=== PATIENT | female | born 1990 | race African-American/Black ===

== ENCOUNTER 2016-09-28 19:59 | Inpatient (IN) | payer MEDICAID, OTHER ==
[~2016-09-28] VITALS: Ht 157.5 cm; Wt 80.0 kg
[~2016-09-28 19:59] MED LIST: PALI234D IM
[2016-09-28 21:00] LABS: BASOPHILS % (AUTO) 0.2 % (0.0-2.0); EOSINOPHILS % (AUTO) 0.7 % (1.0-6.0); HEMATOCRIT 37.4 % (36-46); HEMOGLOBIN 12.2 g/dL (12.0-16.0); LYMPHOCYTES # (AUTO) 3.2 K/uL (1.0-4.8); LYMPHOCYTES % (AUTO) 30.8 % (22.0-44.0); MEAN CORPUSCULAR HEMOGLOBIN 29.8 pg (26.0-34.0); MEAN CORPUSCULAR HGB CONC 32.7 G/dL (31.0-37.0); MEAN CORPUSCULAR VOLUME 91 fL (80-100); MONOCYTES # (AUTO) 0.6 K/uL (0.1-1.0); MONOCYTES % (AUTO) 6.1 % (2.0-9.0); NEUTROPHILS # (AUTO) 6.5 K/uL (1.8-7.7); NEUTROPHILS % (AUTO) 62.2 % (40.0-70.0); PLATELET COUNT (AUTO) 261 K/uL (150-450); WHITE BLOOD COUNT (AUTO) 10.5 K/uL (4.5-11.0)
[2016-09-28 21:12] LABS: ANION GAP 10 mmol/L (8-16); CALCIUM, TOTAL 9.1 mg/dL (8.8-10.5); CARBON DIOXIDE 27 mmol/L (22-29); CHLORIDE 103 mmol/L (98-107); CREATININE 0.72 mg/dL (0.60-1.30); GLOMERULAR FILTR. RATE CALC > 60 mL/min (>60); POTASSIUM 3.7 mmol/L (3.5-5.1); SODIUM SERUM 140 mmol/L (136-145); UREA NITROGEN, BLOOD 12 mg/dL (7-18)
[2016-09-28 21:16] LABS: ALANINE AMINOTRANSFERASE 25 U/L (12-78); ALBUMIN 3.7 g/dL (3.4-5.0); ASPARTATE AMINOTRANSFERASE 16 U/L (15-37); TOTAL PROTEIN, SERUM 7.7 g/dL (6.4-8.2)
[2016-09-28 21:28] LABS: BILIRUBIN,TOTAL 0.1 mg/dL (0.1-1.0)
[2016-09-28] MEDS ORDERED: LORazepam 2 MG TABLET PO PRN (23:00)
[2016-09-28] MEDS ORDERED: OLANZapine 5 MG RAPDIS TABLET PO PRN (23:00)
[2016-09-28] MEDS ORDERED: ZOLPIDEM TARTRATE 10 MG TABLET PO PRN (23:00)
[2016-09-29 05:36] VITALS: BP 101/67
[2016-09-29] MEDS ORDERED: -PHARMACY VACCINE NOTE- MISC ONE ×4 (06:00)
[2016-09-29] MEDS ORDERED: ACETAMINOPHEN 325 MG TABLET PO PRN ×2 (09:45→13:15)
[2016-09-29] MEDS ORDERED: IBUPROFEN 400 MG TABLET PO PRN (09:45)
[2016-09-29] MEDS ORDERED: MAG HYDROX/AL HYDROX/SIMETH ES 30 ML SUSPENSION UDCUP PO PRN (13:15)
[2016-09-29] MEDS ORDERED: LOPERAMIDE HCL 2 MG CAPSULE PO PRN (13:15)
[2016-09-29] MEDS ORDERED: PROMETHAZINE HCL 25 MG TABLET PO PRN (13:15)
[2016-09-29] MEDS ORDERED: HydrOXYzine PAMOATE 50 MG CAPSULE PO PRN (13:15)
[2016-09-29] MEDS ORDERED: GuaiFENesin/D-METHORPHAN [SUGAR-FREE] 200-20MG/10 ML SYRUP UDCUP PO PRN (13:15)
[2016-09-29] MEDS ORDERED: MAGNESIUM HYDROXIDE SUSPENSION 30 ML UDCUP PO PRN (13:15)
[2016-09-29] MEDS ORDERED: INFLUENZA VIRUS VACCINE QVS 2016-17 (3YR+)/PF 60 MCG/0.5 ML SYRINGE IM ONE (13:45)
[2016-09-29 16:06] VITALS: BP 105/61
[2016-09-29] MEDS: THIAMINE HCL 100 MG TABLET PO SCH (17:11)
[2016-09-30 08:33] VITALS: BP 113/59
[2016-09-30 08:33] LABS: HEMOGLOBIN A1C 5.4 % (4.5-6.2)
[2016-09-30 08:48] LABS: CHOL/HDL RATIO 5.5 (3.9-5.7); THYROID STIMULATING HORMONE 0.8 uIU/mL (0.36-3.74)
[2016-09-30] MEDS: FOLIC ACID 1 MG TABLET PO SCH (08:51)
[2016-09-30] MEDS: THIAMINE HCL 100 MG TABLET PO SCH ×2 (08:51→16:21)
[2016-09-30] MEDS: MULTIVITAMINS WITH MINERALS, THERAPEUTIC TABLET PO SCH (08:51)
[2016-09-30] MEDS ORDERED: PALIPERIDONE PALMITATE 156 MG/ML SYRINGE IM ONE (14:30)
[2016-09-30 16:09] VITALS: BP 108/65
[2016-09-30 18:45] VITALS: BP 120/64
[2016-09-30 19:00] VITALS: BP 113/61
[2016-09-30 19:05] VITALS: BP 129/66
[2016-09-30 22:55] VITALS: BP 144/76
[2016-10-01 06:51] VITALS: BP 102/59
[2016-10-01 08:16] VITALS: BP 126/59
[2016-10-01] MEDS: THIAMINE HCL 100 MG TABLET PO SCH ×2 (09:05→16:06)
[2016-10-01] MEDS: FOLIC ACID 1 MG TABLET PO SCH (09:05)
[2016-10-01] MEDS: MULTIVITAMINS WITH MINERALS, THERAPEUTIC TABLET PO SCH (09:05)
[2016-10-01] MEDS ORDERED: PALI156D IM (15:48)
[2016-10-01 16:05] VITALS: BP 128/70
[2016-10-02 04:52] VITALS: BP 123/74
[2016-10-02] MEDS ORDERED: PALIPERIDONE PALMITATE 156 MG/ML SYRINGE IM ONE (08:00)
[2016-10-02] MEDS: MULTIVITAMINS WITH MINERALS, THERAPEUTIC TABLET PO SCH (08:44)
[2016-10-02] MEDS: FOLIC ACID 1 MG TABLET PO SCH (08:44)
[2016-10-02] MEDS: THIAMINE HCL 100 MG TABLET PO SCH (08:44)
[2016-10-03] MEDS ORDERED: PALIPERIDONE PALMITATE 156 MG/ML SYRINGE IM ONE (09:00)
== END 2016-10-02 13:20 | disposition home or self-care (01) | DRG 750 ==
LOC: EMS 20:00 → B3A 09-29 00:28
PROVIDERS: ADMIT Psychiatry & Neurology Psychiatry; ATTEND Psychiatry & Neurology Psychiatry
DX: F20.0 Paranoid schizophrenia (principal); Z91.19 Patient's noncompliance with other medical treatment and regimen; F84.0 Autistic disorder; F31.9 Bipolar disorder, unspecified; F17.210 Nicotine dependence, cigarettes, uncomplicated; D64.9 Anemia, unspecified; E66.9 Obesity, unspecified; F45.8 Other somatoform disorders; E78.5 Hyperlipidemia, unspecified; Z68.32 Body mass index [BMI] 32.0-32.9, adult; Z79.899 Other long term (current) drug therapy
CPT/HCPCS: 83036; 84443; 99285; G0480

== ENCOUNTER 2016-10-28 02:08 | Inpatient (IN) | payer MEDICAID, OTHER ==
[~2016-10-28] VITALS: Ht 162.6 cm; Wt 94.3 kg
[~2016-10-28 02:08] MED LIST changes: +PALI156D IM; -PALI234D IM
[2016-10-28 02:29] LABS: BASOPHILS # (AUTO) 0.06 K/uL (0.00-0.20); BASOPHILS % (AUTO) 0.6 % (0.0-2.0); EOSINOPHILS # (AUTO) 0.18 K/uL (0.00-0.70); EOSINOPHILS % (AUTO) 1.73 % (1.0-6.0); HEMOGLOBIN 11.7 g/dL (12.0-16.0); LYMPHOCYTES # (AUTO) 3.7 K/uL (1.0-4.8); LYMPHOCYTES % (AUTO) 36.5 % (22.0-44.0); MEAN CORPUSCULAR HEMOGLOBIN 29.1 pg (26.0-34.0); MEAN CORPUSCULAR HGB CONC 32.5 G/dL (31.0-37.0); MEAN CORPUSCULAR VOLUME 90 fL (80-100); MONOCYTES # (AUTO) 0.6 K/uL (0.1-1.0); MONOCYTES % (AUTO) 5.7 % (2.0-9.0); NEUTROPHILS # (AUTO) 5.6 K/uL (1.8-7.7); NEUTROPHILS % (AUTO) 55.5 % (40.0-70.0); PLATELET COUNT (AUTO) 243 K/uL (150-450); RED BLOOD CELL COUNT(AUTO) 4.02 MIL/uL (4.00-5.20); RED CELL DISTRIBUTION WIDTH 15.9 % (11.5-14.5); WHITE BLOOD COUNT (AUTO) 10.2 K/uL (4.5-11.0)
[2016-10-28 02:44] LABS: ANION GAP 7 mmol/L (8-16); CARBON DIOXIDE 27 mmol/L (22-29); CHLORIDE 107 mmol/L (98-107); CREATININE 0.69 mg/dL (0.60-1.30); GLOMERULAR FILTR. RATE CALC > 60 mL/min (>60); POTASSIUM 4.5 mmol/L (3.5-5.1); SODIUM SERUM 141 mmol/L (136-145); UREA NITROGEN, BLOOD 10 mg/dL (7-18)
[2016-10-28 02:52] LABS: ALANINE AMINOTRANSFERASE 18 U/L (12-78); ALBUMIN 3.3 g/dL (3.4-5.0); ASPARTATE AMINOTRANSFERASE 12 U/L (15-37); BILIRUBIN,TOTAL 0.2 mg/dL (0.1-1.0)
[2016-10-28] MEDS ORDERED: LORazepam 2 MG TABLET PO PRN (03:00)
[2016-10-28] MEDS ORDERED: OLANZapine 5 MG RAPDIS TABLET PO PRN (03:00)
[2016-10-28] MEDS ORDERED: ZOLPIDEM TARTRATE 10 MG TABLET PO PRN (03:00)
[2016-10-28] MEDS ORDERED: LORazepam 2 MG TABLET PO ONE (04:00)
[2016-10-28] MEDS ORDERED: HALOPERIDOL 5 MG TABLET PO ONE (04:00)
[2016-10-28 05:09] VITALS: BP 120/77
[2016-10-28] MEDS ORDERED: -PHARMACY VACCINE NOTE- MISC ONE ×2 (05:30)
[2016-10-28 06:21] LABS: GLUCOSE, URINE (UA) NEGATIVE (NEGATIVE); KETONES,URINE NEGATIVE (NEGATIVE); LEUKOCYTE ESTERASE ,URINE NEGATIVE (NEGATIVE); OCCULT BLOOD,URINE NEGATIVE (NEGATIVE); PH,URINE 5.5 (5.0-8.0); PROTEIN,URINE NEGATIVE (NEGATIVE)
[2016-10-28 06:25] LABS: ADD UA MICROSCOPIC NO; APPEARANCE,URINE HAZY (CLEAR)
[2016-10-28 08:30] VITALS: BP 115/57
[2016-10-28] MEDS ORDERED: LOPERAMIDE HCL 2 MG CAPSULE PO PRN (11:45)
[2016-10-28] MEDS ORDERED: GuaiFENesin/D-METHORPHAN [SUGAR-FREE] 200-20MG/10 ML SYRUP UDCUP PO PRN (11:45)
[2016-10-28] MEDS ORDERED: MAG HYDROX/AL HYDROX/SIMETH ES 30 ML SUSPENSION UDCUP PO PRN (11:45)
[2016-10-28] MEDS ORDERED: PROMETHAZINE HCL 25 MG TABLET PO PRN (11:45)
[2016-10-28] MEDS ORDERED: ACETAMINOPHEN 325 MG TABLET PO PRN ×2 (11:45→18:30)
[2016-10-28] MEDS ORDERED: PALIPERIDONE 3 MG ER TABLET PO PRN (11:45)
[2016-10-28] MEDS ORDERED: HydrOXYzine PAMOATE 50 MG CAPSULE PO PRN (11:45)
[2016-10-28] MEDS ORDERED: MAGNESIUM HYDROXIDE SUSPENSION 30 ML UDCUP PO PRN (11:45)
[2016-10-28] MEDS ORDERED: PALIPERIDONE PALMITATE 234 MG/1.5 ML SYRINGE IM ONE (13:00)
[2016-10-28 16:59] VITALS: BP 113/66
[2016-10-28] MEDS: THIAMINE HCL 100 MG TABLET PO SCH (17:40)
[2016-10-28] MEDS ORDERED: IBUPROFEN 400 MG TABLET PO PRN (18:30)
[2016-10-29 07:02] LABS: HEMOGLOBIN A1C 5.3 % (4.5-6.2)
[2016-10-29 07:24] LABS: CHOL/HDL RATIO 5.4 (3.9-5.7); THYROID STIMULATING HORMONE 0.76 uIU/mL (0.36-3.74)
[2016-10-29] MEDS: FOLIC ACID 1 MG TABLET PO SCH (09:48)
[2016-10-29] MEDS: THIAMINE HCL 100 MG TABLET PO SCH ×2 (09:48→16:09)
[2016-10-29] MEDS: MULTIVITAMINS WITH MINERALS, THERAPEUTIC TABLET PO SCH (09:48)
[2016-10-29 11:15] VITALS: BP 113/66
[2016-10-29] MEDS ORDERED: PALI234D IM (14:20)
[2016-10-29 18:16] VITALS: BP 125/81
[2016-10-29 20:55] VITALS: BP 117/71
[2016-10-30 06:01] VITALS: BP 121/80
[2016-10-30] MEDS: FOLIC ACID 1 MG TABLET PO SCH (08:02)
[2016-10-30] MEDS: THIAMINE HCL 100 MG TABLET PO SCH (08:02)
[2016-10-30] MEDS: MULTIVITAMINS WITH MINERALS, THERAPEUTIC TABLET PO SCH (08:02)
[2016-10-30 08:55] VITALS: BP 130/85
[2016-11-25] MEDS ORDERED: PALIPERIDONE PALMITATE 234 MG/1.5 ML SYRINGE IM SCH (09:00)
== END 2016-10-30 12:20 | disposition home or self-care (01) | DRG 750 ==
LOC: EMS 02:10 → 3EI 03:59
PROVIDERS: ADMIT Psychiatry & Neurology Psychiatry; ATTEND Psychiatry & Neurology Psychiatry
DX: F25.0 Schizoaffective disorder, bipolar type (principal); R45.851 Suicidal ideations; F31.5 Bipolar disorder, current episode depressed, severe, with psychotic features; F20.0 Paranoid schizophrenia; Z91.19 Patient's noncompliance with other medical treatment and regimen; D64.9 Anemia, unspecified; E66.9 Obesity, unspecified; Z68.35 Body mass index [BMI] 35.0-35.9, adult; F84.0 Autistic disorder; F17.210 Nicotine dependence, cigarettes, uncomplicated; F99 Mental disorder, not otherwise specified; Z79.899 Other long term (current) drug therapy; Z81.8 Family history of other mental and behavioral disorders; Z71.6 Tobacco abuse counseling
CPT/HCPCS: 83036; 84443; 87081; 99285; G0480

== ENCOUNTER 2016-11-12 04:55 | Inpatient (IN) | payer MEDICAID, OTHER ==
[~2016-11-12] VITALS: Ht 162.6 cm; Wt 92.6 kg
[~2016-11-12 04:55] MED LIST changes: +PALI234D IM
[2016-11-12] MEDS ORDERED: HALO5 PO (05:13)
[2016-11-12 05:54] LABS: BASOPHILS % (AUTO) 0.4 % (0.0-2.0); EOSINOPHILS % (AUTO) 1.8 % (1.0-6.0); HEMATOCRIT 38.6 % (36-46); HEMOGLOBIN 12.3 g/dL (12.0-16.0); LYMPHOCYTES # (AUTO) 3.2 K/uL (1.0-4.8); LYMPHOCYTES % (AUTO) 32.3 % (22.0-44.0); MEAN CORPUSCULAR HEMOGLOBIN 28.2 pg (26.0-34.0); MEAN CORPUSCULAR HGB CONC 31.9 G/dL (31.0-37.0); MEAN CORPUSCULAR VOLUME 88 fL (80-100); MONOCYTES # (AUTO) 0.6 K/uL (0.1-1.0); MONOCYTES % (AUTO) 5.7 % (2.0-9.0); NEUTROPHILS # (AUTO) 5.9 K/uL (1.8-7.7); NEUTROPHILS % (AUTO) 59.8 % (40.0-70.0); PLATELET COUNT (AUTO) 224 K/uL (150-450); RED BLOOD CELL COUNT(AUTO) 4.36 MIL/uL (4.00-5.20); WHITE BLOOD COUNT (AUTO) 9.9 K/uL (4.5-11.0)
[2016-11-12 06:04] LABS: ANION GAP 10 mmol/L (8-16); CALCIUM, TOTAL 9.1 mg/dL (8.8-10.5); CARBON DIOXIDE 26 mmol/L (22-29); CHLORIDE 105 mmol/L (98-107); CREATININE 0.64 mg/dL (0.60-1.30); GLOMERULAR FILTR. RATE CALC > 60 mL/min (>60); POTASSIUM 4.4 mmol/L (3.5-5.1); SODIUM SERUM 141 mmol/L (136-145); UREA NITROGEN, BLOOD 12 mg/dL (7-18)
[2016-11-12 06:10] LABS: ALANINE AMINOTRANSFERASE 18 U/L (12-78); ALBUMIN 3.6 g/dL (3.4-5.0); ASPARTATE AMINOTRANSFERASE 8 U/L (15-37); BILIRUBIN,TOTAL 0.2 mg/dL (0.1-1.0); TOTAL PROTEIN, SERUM 7.6 g/dL (6.4-8.2)
[2016-11-12] MEDS ORDERED: HALOPERIDOL 5 MG TABLET PO ONE (07:30)
[2016-11-12] MEDS ORDERED: LORazepam 2 MG TABLET PO ONE (07:30)
[2016-11-12] MEDS ORDERED: OLANZapine 5 MG RAPDIS TABLET PO PRN ×2 (08:00→12:00)
[2016-11-12] MEDS ORDERED: LORazepam 2 MG TABLET PO PRN (08:00)
[2016-11-12] MEDS ORDERED: ZOLPIDEM TARTRATE 10 MG TABLET PO PRN (08:00)
[2016-11-12 10:45] VITALS: BP 128/70
[2016-11-12] MEDS ORDERED: PROMETHAZINE HCL 25 MG TABLET PO PRN (12:00)
[2016-11-12] MEDS ORDERED: LOPERAMIDE HCL 2 MG CAPSULE PO PRN (12:00)
[2016-11-12] MEDS ORDERED: MAGNESIUM HYDROXIDE SUSPENSION 30 ML UDCUP PO PRN (12:00)
[2016-11-12] MEDS ORDERED: HydrOXYzine PAMOATE 50 MG CAPSULE PO PRN (12:00)
[2016-11-12] MEDS ORDERED: ACETAMINOPHEN 325 MG TABLET PO PRN (12:00)
[2016-11-12] MEDS ORDERED: GuaiFENesin/D-METHORPHAN [SUGAR-FREE] 200-20MG/10 ML SYRUP UDCUP PO PRN (12:00)
[2016-11-12] MEDS ORDERED: MAG HYDROX/AL HYDROX/SIMETH ES 30 ML SUSPENSION UDCUP PO PRN (12:00)
[2016-11-12] MEDS: THIAMINE HCL 100 MG TABLET PO SCH (16:20)
[2016-11-12 17:02] VITALS: BP 98/61
[2016-11-12] MEDS: DIVALPROEX SODIUM 500 MG ER TABLET PO SCH (20:05)
[2016-11-12] MEDS ORDERED: OLANZapine 10 MG RAPDIS TABLET PO SCH (21:00)
[2016-11-13 08:52] VITALS: BP 133/69
[2016-11-13] MEDS: MULTIVITAMINS WITH MINERALS, THERAPEUTIC TABLET PO SCH (10:58)
[2016-11-13] MEDS: FOLIC ACID 1 MG TABLET PO SCH (10:58)
[2016-11-13] MEDS: CITALOPRAM HYDROBROMIDE 20 MG TABLET PO SCH (10:58)
[2016-11-13] MEDS: NICOTINE 7 MG/24 HOUR PATCH TD SCH (10:58)
[2016-11-13] MEDS: THIAMINE HCL 100 MG TABLET PO SCH ×2 (10:59→17:15)
[2016-11-13] MEDS ORDERED: OLANZAPINE PAMOATE 405 MG/2.7 ML VIAL IM ONE (13:00)
[2016-11-13] MEDS ORDERED: HALOPERIDOL 5 MG TABLET PO PRN (15:30)
[2016-11-13 16:02] VITALS: BP 124/69
[2016-11-13] MEDS: DIVALPROEX SODIUM 500 MG ER TABLET PO SCH (20:18)
[2016-11-14 08:00] VITALS: BP 119/75
[2016-11-14] MEDS: NICOTINE 7 MG/24 HOUR PATCH TD SCH (09:00)
[2016-11-14] MEDS: MULTIVITAMINS WITH MINERALS, THERAPEUTIC TABLET PO SCH (09:49)
[2016-11-14] MEDS: CITALOPRAM HYDROBROMIDE 20 MG TABLET PO SCH (09:49)
[2016-11-14] MEDS: THIAMINE HCL 100 MG TABLET PO SCH ×2 (09:49→16:02)
[2016-11-14] MEDS: SIMVASTATIN 5 MG TABLET PO SCH (09:49)
[2016-11-14] MEDS: FOLIC ACID 1 MG TABLET PO SCH (09:49)
[2016-11-14 16:43] VITALS: BP 133/74
[2016-11-14] MEDS: DIVALPROEX SODIUM 500 MG ER TABLET PO SCH (20:08)
[2016-11-15 08:00] VITALS: BP 144/62
[2016-11-15] MEDS: NICOTINE 7 MG/24 HOUR PATCH TD SCH (09:00)
[2016-11-15] MEDS: THIAMINE HCL 100 MG TABLET PO SCH ×2 (09:53→16:00)
[2016-11-15] MEDS: FOLIC ACID 1 MG TABLET PO SCH (09:53)
[2016-11-15] MEDS: SIMVASTATIN 5 MG TABLET PO SCH (09:53)
[2016-11-15] MEDS: CITALOPRAM HYDROBROMIDE 20 MG TABLET PO SCH (09:53)
[2016-11-15] MEDS: MULTIVITAMINS WITH MINERALS, THERAPEUTIC TABLET PO SCH (09:53)
[2016-11-15 16:16] VITALS: BP 126/68
[2016-11-15] MEDS: DIVALPROEX SODIUM 500 MG ER TABLET PO SCH (20:08)
[2016-11-15 20:33] LABS: APPEARANCE,URINE CLEAR (CLEAR); GLUCOSE, URINE (UA) NEGATIVE (NEGATIVE); KETONES,URINE NEGATIVE (NEGATIVE); LEUKOCYTE ESTERASE ,URINE NEGATIVE (NEGATIVE); OCCULT BLOOD,URINE NEGATIVE (NEGATIVE); PROTEIN,URINE NEGATIVE (NEGATIVE)
[2016-11-15 20:35] LABS: ADD UA MICROSCOPIC NO
[2016-11-16 08:53] VITALS: BP 120/63
[2016-11-16] MEDS: NICOTINE 7 MG/24 HOUR PATCH TD SCH (09:00)
[2016-11-16] MEDS: THIAMINE HCL 100 MG TABLET PO SCH ×2 (09:09→16:05)
[2016-11-16] MEDS: MULTIVITAMINS WITH MINERALS, THERAPEUTIC TABLET PO SCH (09:09)
[2016-11-16] MEDS: FOLIC ACID 1 MG TABLET PO SCH (09:09)
[2016-11-16] MEDS: SIMVASTATIN 5 MG TABLET PO SCH (09:10)
[2016-11-16] MEDS: CITALOPRAM HYDROBROMIDE 20 MG TABLET PO SCH (09:10)
[2016-11-16] MEDS ORDERED: CITA20TA17 PO (16:49)
[2016-11-16] MEDS ORDERED: DIVA500T52 PO (16:49)
[2016-11-16] MEDS ORDERED: OLAN405V IM (16:49)
[2016-11-16 17:19] VITALS: BP 124/70
[2016-11-16] MEDS: DIVALPROEX SODIUM 500 MG ER TABLET PO SCH (21:13)
[2016-11-17] MEDS: THIAMINE HCL 100 MG TABLET PO SCH (08:13)
[2016-11-17] MEDS: SIMVASTATIN 5 MG TABLET PO SCH (08:13)
[2016-11-17] MEDS: MULTIVITAMINS WITH MINERALS, THERAPEUTIC TABLET PO SCH (08:13)
[2016-11-17] MEDS: FOLIC ACID 1 MG TABLET PO SCH (08:13)
[2016-11-17 08:26] VITALS: BP 128/68
[2016-11-17] MEDS: NICOTINE 7 MG/24 HOUR PATCH TD SCH (09:00)
[2016-11-17] MEDS ORDERED: CITALOPRAM HYDROBROMIDE 20 MG TABLET PO SCH (09:00)
[2016-11-17] MEDS ORDERED: SIMV5TAB6 PO (09:59)
[2016-11-17] MEDS ORDERED: CITA20TA9 PO (10:00)
[2016-11-17] MEDS ORDERED: DIVA500T52 PO (10:01)
[2016-11-17] MEDS ORDERED: OLAN405V IM (10:02)
[2016-12-11] MEDS ORDERED: OLANZAPINE PAMOATE 405 MG/2.7 ML VIAL IM SCH (09:00)
== END 2016-11-17 13:30 | disposition home or self-care (01) | DRG 750 ==
LOC: EMS 05:00 → 3EI 10:14
PROVIDERS: ADMIT Psychiatry & Neurology Psychiatry; ATTEND Psychiatry & Neurology Psychiatry
DX: F25.0 Schizoaffective disorder, bipolar type (principal); R45.851 Suicidal ideations; R45.850 Homicidal ideations; F84.0 Autistic disorder; E66.9 Obesity, unspecified; D64.9 Anemia, unspecified; E78.5 Hyperlipidemia, unspecified; F41.9 Anxiety disorder, unspecified; F17.210 Nicotine dependence, cigarettes, uncomplicated; Z91.14 Patient's other noncompliance with medication regimen; Z79.899 Other long term (current) drug therapy; Z68.35 Body mass index [BMI] 35.0-35.9, adult
CPT/HCPCS: 87081; 99285; G0480; J2358

== ENCOUNTER 2022-10-22 00:03 | Emergency (ER) | payer MEDICAID, OTHER ==
[~2022-10-22] VITALS: Ht 162.6 cm; Wt 115.0 kg
[~2022-10-22 00:03] MED LIST changes: +CITA-144 PO; +CITA20TA17 PO; +DIVA500T53 PO; +OLAN405V IM; -PALI156D IM; -PALI234D IM; +SIMV5TAB59 PO
[2022-10-22 00:55] LABS: COVID AG,FIA SOURCE NASAL SWAB
[2022-10-22 01:24] LABS: INFLUENZA TYPE A NEGATIVE FOR TYPE A (NEGATIVE); INFLUENZA TYPE B NEGATIVE FOR TYPE B (NEGATIVE)
[2022-10-22] MEDS ORDERED: ACET-66 PO (01:47)
[2022-10-22] MEDS ORDERED: GUAIFDM PO (01:47)
[2022-10-22] MEDS ORDERED: IBUP-1554 PO (01:47)
[2022-10-22 01:57] VITALS: BP 154/77
[2022-10-22] MEDS ORDERED: IBUPROFEN 600 MG TABLET PO ONE (02:00)
[2022-10-22] MEDS ORDERED: ACETAMINOPHEN 500 MG TABLET PO ONE (02:00)
[2022-10-22] MEDS ORDERED: GuaiFENesin/D-METHORPHAN [SUGAR-FREE] 200-20MG/10 ML SYRUP UDCUP PO ONE (02:00)
== END 2022-10-22 03:38 | disposition home or self-care (01) ==
LOC: EMS 00:05
DX: J06.9 Acute upper respiratory infection, unspecified (principal); F20.9 Schizophrenia, unspecified; F31.9 Bipolar disorder, unspecified; F84.0 Autistic disorder; F17.210 Nicotine dependence, cigarettes, uncomplicated; Z98.890 Other specified postprocedural states; Z20.822 Contact with and (suspected) exposure to COVID-19
CPT/HCPCS: 87804; 99284; Z7502; Z7610

== ENCOUNTER 2025-04-12 18:31 | Inpatient (IN) | payer MEDICAID ==
[~2025-04-12] VITALS: Ht 162.6 cm; Wt 121.0 kg
[~2025-04-12 18:31] MED LIST changes: +ACET-66 PO; +DIVA-153 PO; -DIVA500T53 PO; +GUAIFDM PO; +IBUP-1554 PO
[2025-04-12 19:45] LABS: GLUCOMETER DEV NAME(LOC) POC.BV; POC SARS-COV2 AG, FIA NEGATIVE (NEGATIVE)
[2025-04-12 20:51] VITALS: BP 134/82; PULSE 97; RESP 18; TEMP 98.4; O2SAT 97
[2025-04-12 21:36] LABS: GLUCOMETER DEV NAME(LOC) BV2X.3; GLUCOSE,POINT OF CARE 120 MG/DL (70-110)
[2025-04-12] MEDS: ACETAMINOPHEN 325 MG TABLET PO PRN (22:11)
[2025-04-13] MEDS: ZOLPIDEM TARTRATE 10 MG TABLET PO PRN (00:01)
[2025-04-13] MEDS ORDERED: ONDANSETRON 4 MG TABLET PO PRN (06:45)
[2025-04-13] MEDS ORDERED: ACETAMINOPHEN 325 MG TABLET PO PRN (06:45)
[2025-04-13] MEDS ORDERED: ALBUTEROL SULFATE HFA 90 MCG/PUFF 8 GM INHALER IH PRN (06:45)
[2025-04-13] MEDS ORDERED: MAG HYDROX/ALUMINUM HYD/SIMETH ES 30 ML SUSPENSION UDCUP PO PRN (06:45)
[2025-04-13] MEDS ORDERED: PETROLATUM,WHITE 28 GM JELLY TP PRN (06:45)
[2025-04-13] MEDS ORDERED: LOPERAMIDE HCL 2 MG CAPSULE PO PRN (06:45)
[2025-04-13] MEDS ORDERED: MAGNESIUM HYDROXIDE SUSPENSION 30 ML UDCUP PO PRN (06:45)
[2025-04-13] MEDS ORDERED: DOCUSATE SODIUM 100 MG CAPSULE PO PRN (06:45)
[2025-04-13] MEDS ORDERED: GuaiFENesin/D-METHORPHAN [SUGAR-FREE] 200-20MG/10 ML SYRUP UDCUP PO PRN (06:45)
[2025-04-13 08:18] VITALS: BP 119/75; PULSE 100; RESP 17; TEMP 97.1; O2SAT 96
[2025-04-13 09:00] LABS: PLATELET COUNT (AUTO) 225 K/uL (150-450); RED BLOOD CELL COUNT(AUTO) 4.11 MIL/uL (4.00-5.20); RED CELL DISTRIBUTION WIDTH 17.0 % (11.5-14.5); WHITE BLOOD COUNT (AUTO) 8.2 K/uL (4.5-11.0)
[2025-04-13 09:32] LABS: ASPARTATE AMINOTRANSFERASE 15 U/L (15-37); CALCIUM, TOTAL 8.9 mg/dL (8.8-10.5); CHOL/HDL RATIO 4.0 (3.9-5.7); CREATININE 0.64 mg/dL (0.60-1.30); GLOMERULAR FILTR. RATE CALC > 60 mL/min (>60); GLUCOSE,RANDOM 124 mg/dL (70-110); HCG,QUANTITATIVE < 1 mIU/mL (0-6); LDL CHOL (CALC.) 115 mg/dL (0-130); SODIUM SERUM 142 mmol/L (136-145); TOTAL PROTEIN, SERUM 6.7 g/dL (6.4-8.2); UREA NITROGEN, BLOOD 7 mg/dL (7-18)
[2025-04-13] MEDS: NICOTINE 14 MG/24 HOUR PATCH TD PRN (10:00)
[2025-04-13] MEDS: CITALOPRAM HYDROBROMIDE 20 MG TABLET PO SCH (13:32)
[2025-04-13] MEDS: DIVALPROEX SODIUM 500 MG ER TABLET PO SCH (20:04)
[2025-04-13 20:52] VITALS: BP 125/76; PULSE 100; RESP 17; TEMP 97.5; O2SAT 98
[2025-04-14 08:33] VITALS: BP 112/71; PULSE 86; RESP 17; TEMP 98.6; O2SAT 99
[2025-04-14 09:25] LABS: CHOL/HDL RATIO 4.3 (3.9-5.7); LDL CHOL (CALC.) 105.0 mg/dL (0-130)
[2025-04-14 09:34] LABS: APPEARANCE,URINE CLEAR (CLEAR); GLUCOSE, URINE (UA) NEGATIVE (NEGATIVE); LEUKOCYTE ESTERASE ,URINE NEGATIVE (NEGATIVE); NITRATE,URINE NEGATIVE (NEGATIVE); OCCULT BLOOD,URINE MODERATE (NEGATIVE); PH,URINE DRUG SCREEN 6.5 (5.0-8.0); SPECIFIC GRAVITIY, URINE 1.006 (1.003-1.030)
[2025-04-14 09:43] LABS: ALCOHOL, URINE DRUG SCREEN NEGATIVE (NEGATIVE); AMPHET/METH SCREEN,URINE NEGATIVE (NEGATIVE); BARBITURATE SCREEN, URINE NEGATIVE (NEGATIVE); CANNABINOID SCREEN,URINE NEGATIVE (NEGATIVE); COCAINE SCREEN,URINE NEGATIVE (NEGATIVE); METHADONE SCREEN, URINE NEGATIVE (NEGATIVE)
[2025-04-14 10:46] LABS: SQUAMOUS EPITHELIAL CELL,UR Few /LPF (None Seen)
[2025-04-14 12:26] VITALS: RESP 18; O2SAT 99
[2025-04-14] MEDS: IBUPROFEN 400 MG TABLET PO PRN (12:26)
[2025-04-14 13:26] VITALS: RESP 17; O2SAT 99
[2025-04-14 20:12] VITALS: BP 143/76; PULSE 99; RESP 19; TEMP 97.9; O2SAT 96
[2025-04-15 08:40] VITALS: RESP 18
[2025-04-15 16:37] VITALS: BP 123/73; PULSE 100
[2025-04-15 20:08] VITALS: BP 101/73; PULSE 100; RESP 18; TEMP 98; O2SAT 98
[2025-04-15 20:18] VITALS: BP 101/73; PULSE 100; RESP 18; TEMP 98; O2SAT 98
[2025-04-16 08:27] VITALS: BP 127/68; PULSE 93; RESP 17; TEMP 98.7; O2SAT 99
[2025-04-16 20:22] VITALS: BP 154/86; PULSE 100; RESP 18; TEMP 97.3; O2SAT 98
[2025-04-17 08:19] VITALS: RESP 18
[2025-04-17 14:09] VITALS: BP 137/76; PULSE 99; RESP 18; TEMP 97.2; O2SAT 96
[2025-04-17 14:23] VITALS: RESP 18; O2SAT 96
[2025-04-17 15:23] VITALS: RESP 17; O2SAT 96
[2025-04-17 20:11] VITALS: BP 122/73; PULSE 81; RESP 17; TEMP 97.8; O2SAT 97
[2025-04-18 07:42] VITALS: BP 128/64; PULSE 98; RESP 16; TEMP 97.9; O2SAT 97
[2025-04-18 08:03] VITALS: BP 128/64; PULSE 98; RESP 18; TEMP 97.9; O2SAT 97
[2025-04-18 08:47] LABS: CHOL/HDL RATIO 5.8 (3.9-5.7); LDL CHOL (CALC.) 158.0 mg/dL (0-130)
[2025-04-18 17:59] VITALS: RESP 17
[2025-04-18 18:59] VITALS: RESP 18
[2025-04-18 20:05] VITALS: BP 124/77; PULSE 110; RESP 17; TEMP 96.4; O2SAT 99
[2025-04-19] MEDS: SIMVASTATIN 10 MG TABLET PO SCH (07:56)
[2025-04-19 08:06] VITALS: BP 129/74; PULSE 87; RESP 18; TEMP 98.1; O2SAT 100
[2025-04-19] MEDS ORDERED: OLAN10TA74 PO (11:09)
[2025-04-19] MEDS ORDERED: DIVA-153 PO (11:09)
[2025-04-19] MEDS ORDERED: CITA-144 PO (11:09)
[2025-04-19] MEDS ORDERED: SIMV10TA97 PO (11:09)
== END 2025-04-19 17:43 | disposition home or self-care (01) | DRG 750 ==
LOC: B2S 19:54
PROVIDERS: ADMIT Psychiatry & Neurology Psychiatry; ATTEND Psychiatry & Neurology Psychiatry
PROC: GZ56ZZZ Individual Psychotherapy, Supportive (ICD-10-PCS; 2025-04-13)
PROC: GZ58ZZZ Individual Psychotherapy, Cognitive-Behavioral (ICD-10-PCS; 2025-04-13)
PROC: GZ52ZZZ Individual Psychotherapy, Cognitive (ICD-10-PCS; 2025-04-14)
PROC: GZHZZZZ Group Psychotherapy (ICD-10-PCS; principal; 2025-04-16)
DX: F25.1 Schizoaffective disorder, depressive type (principal); R45.851 Suicidal ideations; E66.9 Obesity, unspecified; F41.9 Anxiety disorder, unspecified; G47.00 Insomnia, unspecified; R73.03 Prediabetes; E78.5 Hyperlipidemia, unspecified; G89.29 Other chronic pain; Z20.822 Contact with and (suspected) exposure to COVID-19; Z79.899 Other long term (current) drug therapy; Z68.42 Body mass index [BMI] 45.0-49.9, adult
CPT/HCPCS: 80053; 80061; 80164; 80307; 81001; 82962; 83036; 84436; 84443; 84702; 85025; 86592